=== PATIENT | female | born 1935 | race Caucasian/White ===

== ENCOUNTER 2024-02-09 09:56 | Inpatient (IN) | payer MEDICARE, BC ==
[2024-02-09 23:35] VITALS: BMI 24.7
[2024-02-10] MEDS: Cyclobenzaprine 10 MG TAB PO PRN (00:15)
[2024-02-10] MEDS: HYDROcodone/Acetaminophen 5/325 mg Tablet PO PRN (00:15)
[2024-02-10] MEDS: Famotidine 20 MG TAB PO SCH (01:08)
[2024-02-10] MEDS: guaiFENesin ER 600 MG TAB PO SCH (01:08)
[2024-02-10] MEDS: Ipratropium/Albuterol 3 ML NEB NEB SCH (01:08)
[2024-02-10] MEDS: Senokot S 8.6-50 MG TAB PO SCH (01:08)
[2024-02-10] MEDS: Bisacodyl 10 MG SUPP PR SCH ×2 (01:09→08:51)
[2024-02-10] MEDS: Levothyroxine Sodium 100 MCG TAB PO SCH (05:54)
[2024-02-10] MEDS: Dronedarone HCl 400 MG TAB PO SCH (08:42)
[2024-02-10] MEDS: Metoclopramide HCl 10 MG TAB PO SCH (08:42)
[2024-02-10] MEDS: Escitalopram Oxalate 10 mg Tablet PO SCH (08:43)
[2024-02-10] MEDS: Cholecalciferol 1,000 UNITS (25 MCG) TAB PO SCH (08:43)
[2024-02-10] MEDS: Empagliflozin 10 MG TAB PO SCH (08:44)
[2024-02-10] MEDS: Ezetimibe 10 MG TAB PO SCH (08:46)
[2024-02-10] MEDS: Aspirin 81 mg Enteric Coated Tablet PO SCH (08:47)
[2024-02-10] MEDS: Furosemide 40 MG TAB PO SCH (08:48)
[2024-02-10] MEDS: Polyethylene Glycol 3350 17 GM Packet PO SCH (08:49)
[2024-02-10] MEDS: Lactulose 20 GM (30 mL) UDCUP PO SCH (08:50)
[2024-02-10] MEDS: Acetaminophen/Codeine 30-300mg Tablet PO PRN (11:44)
[2024-02-10] MEDS ORDERED: Artificial Tear Ophth Sol 15 ML BOT EA EYE PRN (14:42)
[2024-02-10] MEDS: Simethicone Chewable 80 MG TAB PO SCH ×2 (17:02→20:03)
[2024-02-10] MEDS: Enoxaparin 30 MG (0.3 mL) SYRINGE SC SCH (20:04)
[2024-02-10] MEDS: Nystatin Cream 15 GM TUBE TOP SCH (20:05)
[2024-02-11] MEDS: Ferrous Gluconate 324 MG TAB PO SCH (08:28)
[2024-02-11] MEDS: Mometasone 200 MCG/Formoterol 5 MCG 60 PUFF INHALER INH SCH ×2 (10:50→21:44)
[2024-02-11] MEDS: predniSONE 20 MG TAB PO SCH (11:20)
[2024-02-11] MEDS ORDERED: Mometasone 200 MCG/Formoterol 5 MCG 60 PUFF INHALER INH SCH (19:00)
[2024-02-12] MEDS: Acetaminophen 500 MG TAB PO PRN (02:17)
[2024-02-12] MEDS: predniSONE 20 MG TAB PO SCH (08:38)
[2024-02-14] MEDS: tiZANidine HCl 4 MG TAB PO PRN (21:23)
[2024-02-17] MEDS ORDERED: Bisacodyl 10 MG SUPP PR PRN (09:15)
[2024-02-17] MEDS ORDERED: Lactulose 20 GM (30 mL) UDCUP PO PRN (09:16)
[2024-02-17] MEDS: Lorazepam 0.5 MG TAB PO SCH (13:23)
[2024-02-19] MEDS: GUAIFENESIN SF SOLN 200 MG/10 ML UDCUP PO PRN (02:18)
[2024-02-19 05:21] LABS: Hematocrit 34.9 % (36.0-47.0); Hemoglobin 11.2 g/dL (12.0-16.0); Platelet Count 380 10x3/uL (130-400)
[2024-02-21] MEDS: Gabapentin 100 MG CAP PO SCH (21:22)
[2024-02-22] MEDS: Gabapentin 300 MG CAP PO SCH (20:28)
[2024-02-23] MEDS: Gabapentin 300 MG CAP PO SCH ×2 (13:14→20:26)
[2024-02-25] MEDS: Enoxaparin 40 MG (0.4 mL) SYRINGE SC SCH (20:57)
[2024-02-25] MEDS: Melatonin 3 MG TAB PO PRN (23:03)
[2024-03-02] MEDS: Simethicone Chewable 80 MG TAB PO SCH (23:22)
[2024-03-04 05:40] LABS: Hematocrit 37.5 % (36.0-47.0); Hemoglobin 11.4 g/dL (12.0-16.0); Platelet Count 266 10x3/uL (130-400)
[2024-03-04] MEDS: Enoxaparin 30 MG (0.3 mL) SYRINGE SC SCH (21:08)
[2024-03-06 07:27] VITALS: BMI 22.6
[2024-03-07] MEDS ORDERED: Acetaminophen/Codeine 30-300mg Tablet PO PRN (07:31)
[2024-03-07] MEDS ORDERED: HYDROcodone/Acetaminophen 5/325 mg Tablet PO PRN (07:31)
[2024-03-07 09:23] VITALS: BP 169/80; TEMP 97.5
== END 2024-03-07 13:05 | DRG 945 ==
LOC: MADMS 23:17
PROVIDERS: ADMIT Family Medicine; ATTEND Family Medicine
PROC: F07Z9ZZ Gait Training/Functional Ambulation Treatment (ICD-10-PCS; principal; 2024-03-03)
DX: R53.81 Other malaise (principal); J96.00 Acute respiratory failure, unspecified whether with hypoxia or hypercapnia; I50.32 Chronic diastolic (congestive) heart failure; J44.1 Chronic obstructive pulmonary disease with (acute) exacerbation; I11.0 Hypertensive heart disease with heart failure; I48.0 Paroxysmal atrial fibrillation; E78.5 Hyperlipidemia, unspecified; E03.9 Hypothyroidism, unspecified; G25.81 Restless legs syndrome; E11.40 Type 2 diabetes mellitus with diabetic neuropathy, unspecified; Z66 Do not resuscitate; I70.8 Atherosclerosis of other arteries; Z88.8 Allergy status to other drugs, medicaments and biological substances; Z79.890 Hormone replacement therapy; Z79.899 Other long term (current) drug therapy; Z79.82 Long term (current) use of aspirin; Z79.891 Long term (current) use of opiate analgesic; Z86.73 Personal history of transient ischemic attack (TIA), and cerebral infarction without residual deficits; Z90.5 Acquired absence of kidney; Z90.722 Acquired absence of ovaries, bilateral; Z90.710 Acquired absence of both cervix and uterus; Z87.891 Personal history of nicotine dependence; Z99.81 Dependence on supplemental oxygen
CPT/HCPCS: 36415; 36416; 71045; 74018; 82565; 85014; 85018; 85049; 94664; J1650; J7512; J7620